=== PATIENT | male | born 1950 | race Caucasian/White ===

== ENCOUNTER 2019-01-20 15:44 | Observation (INO) ==
[2019-01-20] MEDS ORDERED: *HR* FentaNYL (PF) 100 MCG/2 ML VIAL IVP ONE (16:07)
--- NOTE | 2019-01-20 16:35 | Emergency Department Note ---
Disposition Clinical Impression: Syncope Qualifiers: Syncope type: unspecified Qualified Code(s): R55 - Syncope and collapse Wrist pain Qualifiers: Laterality: left Qualified Code(s): M25.532 - Pain in left wrist Disposition: Admitted As Inpatient Condition: Good Forms: ED Satisfaction Letter Time of Disposition: 18:22 General Adult HPI - General Chief complaint: ED Altered Mental Status Stated complaint: AMS Swollen Deformed Painful L Wrist Time Seen by Provider: 01/20/19 16:02 Source: patient Mode of arrival: ambulatory Limitations: no limitations Nursing Notes Reviewed: Yes Vital Signs Reviewed: Yes - History of Present Illness HPI Narrative: 68-year-old male with significant past medical history of hypertension, hyperlipidemia and coronary artery disease currently on aspirin and Plavix presenting to the emergency department chief complaint of altered mental status and left wrist deformity. According to family member at bedside patient was at his camper this week. She went to pick him up from the cancer and he was not acting like his normal self. He does not remember being there. He had a left wrist deformity and did not remember how he got it. Family member was concerned that the patient could have hit his head. Patient also complaining of some nausea and belching. Family member at bedside states his previous MIs have presented in similar fashion. Patient denies any chest pain or shortness of breath. Does state a little bit ahead pain but denies dizziness. Pain Scale: 8 - Related Data Allergies Allergy/AdvReac Type Severity Reaction Status Date / Time Iodinated Contrast Media Allergy Difficulty Verified 01/20/19 18:02 Breathing All systems ED: reviewed and negative except as stated. Constitutional: Denies: fever Eyes: Reports: as per HPI ENT ED: Reports: as per HPI Cardiovascular: Denies: chest pain Respiratory: Denies: dyspnea Gastrointestinal: Reports: nausea Genitourinary: Reports: as per HPI Musculoskeletal: Reports: joint swelling, arthralgia Integumentary: Reports: as per HPI Neurological: Reports: headache Psychiatric: Reports: as per HPI Endocrine: Reports: as per HPI Hematological/Lymphatic: Reports: as per HPI Allergic/Immunologic: Reports: as per HPI Past Medical History - Past Medical History Attestation: Yes The following information was validated with the patient. Medical history: Reports: coronary artery disease, hyperlipidemia, hypertension Psychiatric history: Reports: no psych history - Social History Smoking Status: Current every day smoker Smokeless Tobacco Status: No Alcohol use: Reports: none, rarely Drug use: Reports: none Physical Exam - General Limitations: no limitations General appearance: alert, in no apparent distress - Head Head exam: atraumatic, normocephalic, normal inspection - Eye Eye exam: Present: PERRL, EOMI. Absent: scleral icterus - ENT ENT exam: mucous membranes moist - Neck Neck exam: Present: full ROM. Absent: tenderness - Chest Chest inspection: Present: symmetric chest wall rise - Respiratory Respiratory exam: Present: normal lung sounds bilaterally. Absent: respiratory distress, wheezes - Cardiovascular Cardiovascular exam: Present: normal rhythm, tachycardia - Abdominal Exam Abdominal exam: Present: soft, tenderness. Absent: distention, guarding, rebound Abdominal tenderness: Present: epigastrium, mild - Extremities Exam Extremities exam: Present: other (All 4 extremities neurovascularly intact. Left wrist with significant tenderness to palpation and some mild swelling. Patient able to wiggle fingers without difficulty.) - Neurological Exam Neurological exam: Present: alert - Psychiatric Psychiatric exam: Present: normal affect, normal mood - Skin Skin exam: Present: warm Course Course Narrative: 68-year-old male presenting for left wrist deformity and altered mental status. In the room patient is alert and oriented. Mildly tachycardic in the low 100s but otherwise hemodynamically stable. Family member at bedside states he does not remember being at the camper. Patient does state he is having some left wrist pain with some tenderness and mild deformity noted. Concern for intracra nial etiology versus cardiac etiology at this time. We will obtain a CT of the head and cervical spine, wrist and chest x-ray along with basic labs, EKG and troponin. Disposition pending. Patient and family member at bedside agree with this plan. - Reevaluation(s) Reevaluation #1: Patient's laboratory analysis shows mild hypercalcemia but otherwise is benign. Wrist x-ray and chest x-ray shows no acute abnormality. CT head and cervical spine within normal limits. Due to patient's unexplained syncopal episode we will plan to admit the patient for further analysis. Patient remains alert and oriented 3 and hemodynamically stable. Patient agrees with this plan. Patient does have snuffbox tenderness therefore thumb spica splint will be placed. I spoke with the hospitalist non destructive testing technician Dr. Wellington who agrees to accept the patient at this time. He is recommending a CK level. This will be added. Vital Signs Temperature 98 F 01/20/19 15:55 Pulse Rate 107 01/20/19 15:55 Respiratory Rate 18 01/20/19 15:55 Blood Pressure 156/85 01/20/19 15:55 O2 Sat by Pulse Oximetry 95 01/20/19 15:55 Temperature 98 F 01/20/19 16:11 Pulse Rate 106 01/20/19 18:09 Respiratory Rate 16 01/20/19 18:09 Blood Pressure 148/87 01/20/19 18:09 O2 Sat by Pulse Oximetry 98 01/20/19 18:09 Oxygen Delivery Oxygen Delivery Room Air Medical Decision Making - Lab Data Result diagrams: 01/20/19 16:22 01/20/19 16:22 Lab Results 01/20/19 01/20/19 Range/Units 16:22 16:22 WBC 14.0 H (4.3-11.1) K/mcL RBC 5.12 (4.19-5.50) M/mcL Hgb 16.0 (12.9-16.9) g/dL Hct 47.2 (37.5-50.1) % MCV 92.2 (83.0-100.0) fL MCH 31.3 (28.0-33.3) pg MCHC 33.9 (31.6-35.5) g/dL RDW 13.2 (11.5-14.5) % Plt Count 306 (140-400) K/mcL MPV 9.0 L (9.4-12.4) fL Immature Gran % 0.4 (0-4) % Seg Neutrophils % 85.0 % Lymphocytes % 8.2 % Monocytes % 5.8 % Eosinophils % 0.3 % Basophils % 0.3 % Neutrophils # 11.9 H (1.6-8.9) K/mcL Lymphocytes # 1.2 (0.6-4.6) K/mcL Monocytes # 0.8 (0.0-1.3) K/mcL Eosinophils # 0.0 (0.0-0.6) K/mcL Basophils # 0.0 (0.0-0.2) K/mcL Sodium 137 (136-145) mEq/L Potassium 4.1 (3.5-5.1) mEq/L Chloride 101 (98-107) mEq/L Carbon Dioxide 29 (23-29) mEq/L BUN 11 (8-23) mg/dL Creatinine 1.00 (0.70-1.30) mg/dL Est GFR ( Amer) > 60 (> 60) Est GFR (Non-Af Amer) > 60 (> 60) BUN/Creatinine Ratio 11 (6-26) Glucose 130 H (70-105) mg/dL Calculated Osmolality 285 (280-300) Calcium 10.8 H (8.6-10.3) mg/dL Total Bilirubin 0.7 (0.3-1.0) mg/dL Direct Bilirubin 0.2 (0.0-0.2) mg/dL Indirect Bilirubin 0.5 (0.0-1.2) mg/dL AST 22 (13-39) Units/L ALT 32 (7-52) Units/L Alkaline Phosphatase 81 (34-104) Units/L Troponin I < 0.03 (< 0.04) ng/mL Serum Total Protein 7.6 (6.4-8.9) g/dL Albumin 4.3 (3.5-5.7) g/dL Globulin 3.3 (2.4-3.5) g/dL Albumin/Globulin Ratio 1.3 (1.1-2.2) - EKG Data EKG #1 EKG attestation: Yes I reviewed and interpreted this EKG. EKG results narrative: Sinus tachycardia. 106 bpm. Right bundle branch block. TN interval 164, QRS 144, QTC 488. No sign of acute ST segment elevation or ischemia. Compared to previous EKG completed on 07/15/2013 no significant changes noted
[2019-01-20 16:47] LABS: Basophils % 0.3 %; Eosinophils % 0.3 %; Hematocrit 47.2 % (37.5-50.1); Immature Granulocytes % 0.4 % (0-4); Lymphocytes # 1.2 K/mcL (0.6-4.6); Lymphocytes % 8.2 %; Mean Corpuscular HGB Conc 33.9 g/dL (31.6-35.5); Mean Corpuscular Hemoglobin 31.3 pg (28.0-33.3); Mean Corpuscular Volume 92.2 fL (83.0-100.0); Monocytes # 0.8 K/mcL (0.0-1.3); Monocytes % 5.8 %; Neutrophils # 11.9 K/mcL (1.6-8.9); Platelet Count 306 K/mcL (140-400); Red Blood Count 5.12 M/mcL (4.19-5.50); Red Cell Distribution Width 13.2 % (11.5-14.5)
[2019-01-20 17:07] LABS: Alanine Aminotransferase 32 Units/L (7-52); Albumin 4.3 g/dL (3.5-5.7); Albumin/Globulin Ratio 1.3 (1.1-2.2); Alkaline Phosphatase 81 Units/L (34-104); Aspartate Amino Transferase 22 Units/L (13-39); BUN/Creatinine Ratio 11 (6-26); Bilirubin,Direct 0.2 mg/dL (0.0-0.2); Bilirubin,Indirect 0.5 mg/dL (0.0-1.2); Bilirubin,Total 0.7 mg/dL (0.3-1.0); Blood Urea Nitrogen 11 mg/dL (8-23); Calcium 10.8 mg/dL (8.6-10.3); Carbon Dioxide 29 mEq/L (23-29); Chloride 101 mEq/L (98-107); Globulin 3.3 g/dL (2.4-3.5); Glucose 130 mg/dL (70-105); Osmolality,Calculated 285 (280-300); Potassium 4.1 mEq/L (3.5-5.1); Sodium 137 mEq/L (136-145); Total Protein 7.6 g/dL (6.4-8.9); Troponin I < 0.03 ng/mL (< 0.04); eGFR For African Americans > 60 (> 60); eGFR For Non-African Americans > 60 (> 60)
[2019-01-20 18:34] LABS: Creatine Kinase 94 Units/L (30-223)
[2019-01-20 18:57] LABS: Bilirubin,Urine Negative (Negative); Blood,Urine Trace (Negative); Clarity,Urine Cloudy (Clear); Color,Urine Yellow (Yellow); Glucose,Urine (UA) Normal (Normal); Ketones,Urine Negative (Negative); Leukocyte Esterase,Urine Small (Negative); Nitrite,Urine Negative (Negative); Protein,Urine Trace mg/dL (Neg-Trace); Urobilinogen,Urine Normal (Normal)
[2019-01-20 18:59] LABS: Bacteria,Urine Moderate per hpf (None-Few); Hyaline Casts,Urine None Seen per lpf (None-Few); Squamous Epithelial Cell,Urine None Seen per lpf (None-Few); WBC,Urine 15-30 per hpf (0-3)
[2019-01-20] MEDS ORDERED: Naloxone 0.4 MG/ML INJ IVP PRN (20:30)
[2019-01-20] MEDS ORDERED: Ondansetron ODT 4 MG TAB.RAPDIS SL PRN (20:30)
[2019-01-20] MEDS ORDERED: Ringers Solution, Lactated 1,000 ML IVC ONE (22:44)
[2019-01-20] MEDS ORDERED: Ringers Solution, Lactated 1,000 ML IVC SCH (22:45)
--- NOTE | 2019-01-20 23:04 | Internal Med History&Physical ---
Date of Encounter: 01/21/19 Time of Encounter: 23:02 Internal Medicine - H&P: HPI Chief complaint: confusion Admitted From: Home Plans for Post Hospital Care: Home History of present illness: Mr. 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 Patient usually during the summer lives in a camper and reported went to bed yesterday on 9 PM woke up this morning feeling severe left wrist pain. Patient subsequently drove to his daughter's house and was noted by his daughter to be slurring with his speech, and confused that lasted total 8-10 hours there was no alleviating or exacerbating factor no association of nausea, diaphoresis, vomiting, chest pain, shortness of breath, palpitations, diarrhea or abdominal pain. The patient's daughter who is an RN did a stroke assessment and saw there iwas no focal deficit, but slurring of speech. Patient does not remember what occurred during those episodes no recollection. Patient also complained of left wrist pain that was found incidentally sudden constant 10/10 exacerbated with movement and palpation, alleviated with elevation and rest accompanied with swelling and redness. Patient denied and doesnt re-call insect bites, trauma, or any event during this time. Personally reviewed patient's past medical, surgical, social and family history. Denies drinking, smoking or drugs besides summer lives at home as independent. Family history significant for cardiac disease, no recent surgeries. Patient had no medication changes and continues to be in aspirin and Plavix per cardiology recommendations outpatient. Allergies to IV dye that would cause CODE BLUE. CODE BLUE was discussed and patient is a full code. Past Med Surg Social Fam HX - Past Medical History Medical history: coronary artery disease, hyperlipidemia, hypertension, myocardial infarction Additional medical history: BPH, Kidney stones Psychiatric history: no psych history - Social History Smoking Status: Current every day smoker Smokeless Tobacco Status: No Alcohol use: none, rarely Drug use: none - Family History Father Living Status: Hx Family Neurologic Disorders: Yes Mother Living Status: Hx Family Neurologic Disorders: Yes Internal Medicine - H&P: Meds Aspirin [Lo-Dose Aspirin EC] 81 mg PO DAILY 01/20/19 [History] Atorvastatin Calcium [Lipitor] 80 mg PO HS 01/20/19 [History] Clopidogrel [Plavix] 75 mg PO DAILY 01/20/19 [History] Cranberry Fruit Extract [Cranberry] 500 mg PO DAILY 01/20/19 [History] Cyanocobalamin (Vitamin B-12) [B-12] 2,500 mcg SL DAILY 01/20/19 [History] Ezetimibe [Zetia] 10 mg PO HS 01/20/19 [History] Finasteride [Proscar] 5 mg PO DAILY 01/20/19 [History] Multivitamin [One Daily Essential] 1 each PO DAILY 01/20/19 [History] Pantoprazole Sodium [Protonix] 10 mg PO DAILY 01/20/19 [History] Ramipril [Altace] 10 mg PO BID 01/20/19 [History] Tamsulosin HCl [Flomax] 0.4 mg PO BID 01/20/19 [History] amLODIPine [Norvasc] 10 mg PO DAILY 01/20/19 [History] Allergy/AdvReac Type Severity Reaction Status Date / Time Iodinated Contrast Media Allergy Difficulty Verified 01/20/19 18:02 Breathing All Systems PM: A 10-system review of systems was performed and is negative for pertinent findings except as documented above in the HPI. Review of systems: General: No unintentional weightloss, No fever, No night sweats. Head: No headahce, No injury. Ears: No discharge, No earache Eyes: No drainage, No eye pain Mouth and Throat: No new ulcers, No pain Nose and Sinus: No new congestion, No pain, Respiratory: No cough, No sputum production, No dyspnea Cardiovascular: No chest pain, No palpitations. Gastrointestinal: No nausea, No vomiting. No abdominal pain Genital Tract: No discharge, No pain Urinary Tract: No dysuria, No discharge. MSK: + new/worsening joint pain or + new/worsening muscle ache. Endocrine: No cold intolerance, No polyuria Psychological: No suicidal, No homocidal ideation. - Constitutional Vitals: Temp Pulse Resp BP Pulse Ox 98.6 F 105 14 148/77 94 01/20/19 19:11 01/20/19 19:11 01/20/19 19:11 01/20/19 19:11 01/20/19 19:11 Exam: General Appearance: Appearing as age, well-nourished in mild acute distress. Head: Atraumatic normocephalic Skin: Normal texture, normal turgor, warm, dry. Eyes: Conjunctivae not pale with no erythema, drainage, or ulcers. Anicteric. Neck: No Lymphadenopathy in the anterior/posterior cervical chain. No thyromegaly, masses or ulcers. Trachea midline. Heart: RRR, no murmurs. Capillary refill 3 seconds Lungs: No accessory muscle usage, lungs clear to auscultation bilaterally, no wheezes or crackles. Extremities: No pitting edema, clubbing, cyanosis, or ulcers. Abdomen: Non-distended, normoactive bowel sounds. non-tender to palpation, no hepatomegally. No guarding. Neuro: AOx3 with no new sensory loss or focal deficits. MSK: Strength 5/5 right Upper extremity equal bilaterally. Strength 5/5 Lower extremity equal bilaterally. Left upper wrist tender, edematous nonerythematous with significant pain on passive and active range of motion localized general ized joint line. Pulses intact, sensation and muscle strength is also intact limited to pain 4/5. Internal Med - H&P Results - Labs CBC & Chem 7: 01/21/19 02:26 01/21/19 02:26 Labs: Short CBC 01/20/19 Range/Units 16:22 WBC 14.0 H (4.3-11.1) K/mcL Hgb 16.0 (12.9-16.9) g/dL Hct 47.2 (37.5-50.1) % Plt Count 306 (140-400) K/mcL Neutrophils # 11.9 H (1.6-8.9) K/mcL BMP 01/20/19 16:22 Sodium 137 Potassium 4.1 Chloride 101 Carbon Dioxide 29 BUN 11 Creatinine 1.00 Glucose 130 H Calcium 10.8 H Cardiac Enzymes 01/20/19 01/20/19 Range/Units 16:22 20:49 Troponin I < 0.03 < 0.03 (< 0.04) ng/mL Liver Function 01/20/19 Range/Units 16:22 Total Bilirubin 0.7 (0.3-1.0) mg/dL Direct Bilirubin 0.2 (0.0-0.2) mg/dL AST 22 (13-39) Units/L ALT 32 (7-52) Units/L Alkaline Phosphatase 81 (34-104) Units/L Albumin 4.3 (3.5-5.7) g/dL Urine 01/20/19 Range/Units 17:43 Urine Color Yellow (Yellow) Urine Clarity Cloudy A (Clear) Urine pH 7.0 (5.0-8.0) pH Units Ur Specific Leopold 1.020 (1.010-1.025) Urine Protein Trace (Neg-Trace) mg/dL Urine Glucose (UA) Normal (Normal) mg/dL - Impressions ITS Impressions Chest X-Ray 01/20/19 16:06 IMPRESSION: 1. Reticular opacities in the mid to lower lung zones. No prior studies available for comparison. Differential considerations are broad and include edema, infection, or chronic lung changes. D/ / 01/20/2019 16:41:20 Arti Hidalgo MD / kellee Interpreting Provider: Arti Hidalgo MD Cervical Spine CT 01/20/19 16:07 IMPRESSION: No acute fracture. D/ / Mireya Thomas MD / Mireya Thomas MD Interpreting Provider: Mireya Thomas MD Head CT 01/20/19 16:07 IMPRESSION: No acute intracranial abnormality. D/ / Mireya Thomas MD / Mireya Thomas MD Interpreting Provider: Mireya Thomas MD Wrist X-Ray 01/20/19 16:07 IMPRESSION: 1. No acute osseous or soft tissue abnormality of the left wrist. 2. Ulnar negative variance. D/ / 01/20/2019 16:42:35 Arti Hidalgo MD / Breanna Sandoval Interpreting Provider: Arti Hidalgo MD - Summary of Assessment and Plan Summary of Assessment and Plan: 1.Transient Encephalopathy: Suspected Transient ischemic attack with suspicion of transient global amnesia: Lasted for 8-10 hours and currently resolved. CT head negative. ABCD score 5-Moderate risk Aspirin given. Plan: Cardiac monitoring, ultrasound carotids, echocardiogram, MRI brain. Neurology consultation. 2.Acute left wrist pain: Unclear Etiology due to #1 Wrist x-ray showing no acute fracture. MRI left wrist to check for acute fracture, or septic joint. No joint US capabilities at night. 3. Hyperglycemia: A1c pending. ISS 4.Hyposphatemia: Replace. CHronic medical condition: HTN: held medications. DVT prophylaxis: heparin Dispo: likely < 2 day stay. - Time Spent With Patient Total time spent is greater than 39 minutes 50% in coordination of care (as documented) at patient's floor/unit and/or counseling patient: Greater than 35 minutes
[2019-01-20] MEDS ORDERED: Morphine Sulfate 2 MG/ML SYRINGE IVP PRN (23:07)
[2019-01-20] MEDS: *HR* OxyCODONE Immed Rel 5 MG TABLET PO PRN (23:32)
[2019-01-21] MEDS: Ringers Solution, Lactated 1,000 ML IVC SCH ×2 (00:42→08:56)
[2019-01-21 02:45] LABS: Basophils % 0.2 %; Eosinophils % 0.2 %; Immature Granulocytes % 0.4 % (0-4); Lymphocytes # 1.2 K/mcL (0.6-4.6); Lymphocytes % 9.2 %; Mean Corpuscular HGB Conc 34.1 g/dL (31.6-35.5); Mean Corpuscular Hemoglobin 31.5 pg (28.0-33.3); Mean Corpuscular Volume 92.4 fL (83.0-100.0); Mean Platelet Volume 9.1 fL (9.4-12.4); Monocytes # 1.1 K/mcL (0.0-1.3); Monocytes % 8.9 %; Neutrophils # 10.3 K/mcL (1.6-8.9); Platelet Count 282 K/mcL (140-400); Red Blood Count 4.76 M/mcL (4.19-5.50); Red Cell Distribution Width 13.3 % (11.5-14.5); Segmented Neutrophils % 81.1 %; White Blood Count 12.7 K/mcL (4.3-11.1)
[2019-01-21 02:52] LABS: INR 1.1; Prothrombin Time 12.3 Seconds (9.4-12.1)
[2019-01-21 03:04] LABS: Alanine Aminotransferase 25 Units/L (7-52); Albumin 3.7 g/dL (3.5-5.7); Albumin/Globulin Ratio 1.3 (1.1-2.2); Alkaline Phosphatase 74 Units/L (34-104); Aspartate Amino Transferase 18 Units/L (13-39); BUN/Creatinine Ratio 11 (6-26); Bilirubin,Total 0.6 mg/dL (0.3-1.0); Blood Urea Nitrogen 11 mg/dL (8-23); Calcium 9.4 mg/dL (8.6-10.3); Carbon Dioxide 25 mEq/L (23-29); Chloride 103 mEq/L (98-107); Globulin 2.9 g/dL (2.4-3.5); Glucose 234 mg/dL (70-105); Magnesium 1.8 mg/dL (1.6-2.6); Osmolality,Calculated 291 (280-300); Potassium 3.7 mEq/L (3.5-5.1); Sodium 137 mEq/L (136-145); Total Protein 6.6 g/dL (6.4-8.9); eGFR For African Americans > 60 (> 60); eGFR For Non-African Americans > 60 (> 60)
[2019-01-21 03:11] LABS: Chol/HDL Ratio 2.6 (0-4.9); Troponin I 0.03 ng/mL (< 0.04)
[2019-01-21] MEDS ORDERED: Aspirin Enteric Coated 325 MG Tablet PO SCH (04:54)
[2019-01-21] MEDS ORDERED: D5% in Water 1,000 ML IVC PRN (05:03)
[2019-01-21] MEDS ORDERED: *HR* Dextrose 50 % in Water (Syg) 50 ML SYRINGE IVP PRN (05:03)
[2019-01-21] MEDS ORDERED: Dextrose Gel 15 GM/37.5 ML TUBE PO PRN ×2 (05:03)
[2019-01-21] MEDS: *HR* Heparin 5,000 UNIT/ML VIAL SQ SCH ×2 (05:42→16:26)
[2019-01-21 06:06] LABS: Bilirubin,Urine Negative (Negative); Blood,Urine Moderate (Negative); Clarity,Urine Clear (Clear); Color,Urine Yellow (Yellow); Glucose,Urine (UA) 100 mg/dL (Normal); Ketones,Urine Negative (Negative); Leukocyte Esterase,Urine Trace (Negative); Nitrite,Urine Negative (Negative); Protein,Urine Negative (Neg-Trace); Specific Gravity,Urine 1.014 (1.010-1.025); Urobilinogen,Urine Normal (Normal)
[2019-01-21 06:08] LABS: Bacteria,Urine None Seen per hpf (None-Few); Hyaline Casts,Urine None Seen per lpf (None-Few); RBC,Urine 15-30 per hpf (0-3); Squamous Epithelial Cell,Urine Moderate per lpf (None-Few)
[2019-01-21] MEDS: Insulin LISPRO 300 UNITS/3 ML VIAL SQ SCH ×2 (07:49→13:02)
[2019-01-21] MEDS ORDERED: Lisinopril 20 MG TABLET PO SCH (09:00)
[2019-01-21] MEDS ORDERED: Finasteride 5 MG TABLET PO SCH (09:00)
[2019-01-21] MEDS ORDERED: Aspirin Enteric Coated 81 MG Tablet PO SCH (09:00)
[2019-01-21] MEDS: *HR* OxyCODONE Immed Rel 5 MG TABLET PO PRN (09:18)
[2019-01-21 09:57] LABS: Amphetamine Screen,Urine Negative ng/mL (Cutoff=1000); Barbiturate Screen,Urine Negative ng/mL (Cutoff=200); Benzodiazepines Screen,Urine Negative ng/mL (Cutoff=200); Cannabinoid Screen,Urine Negative ng/mL (Cutoff = 50); Cocaine Screen,Urine Negative ng/mL (Cutoff= 300); Opiate Screen,Urine Negative ng/mL (Cutoff=300); Phencyclidine Screen,Urine Negative ng/mL (Cutoff=25)
[2019-01-21 10:56] LABS: Estimated Average Glucose 151 mg/dl
[2019-01-21 11:27] VITALS: BP 150/84
--- NOTE | 2019-01-21 15:11 | Discharge Summary ---
- NOTES TO OUTPATIENT PROVIDER Notes to Outpatient Provider: Patient with a history of BPH, coronary artery disease, CABG who was hospitalized here with concerns initially for slurred speech and confusion and possible TIA. TIA workup was negative. Patient had an MRI of the brain which was negative for acute stroke. He had also been complaining of pain and swelling in his left wrist. MRI of the left wrist showed possible nondisplaced fracture of the hamate bone with surrounding edema. Patient has had a wrist brace placed and orthopedics follow-up will be arranged. Patient is stable to be discharged home at this time. He has no focal deficits. . Patient does appear to have microscopic hematuria which will need to be followed as outpatient. Orders not resulted at time of discharge: Pending orders 01/20/19 17:43 Culture,Urine [RM] Stat Date of Encounter: 01/21/19 Time of Encounter: 15:09 - Discharge Diagnosis (1) TIA (transient ischemic attack) Priority: Primary Status: Acute (2) Fracture of hamate bone of left wrist Priority: Secondary Status: Acute Qualifiers: Encounter type: initial encounter Hamate bone location: unspecified portion of hamate Fracture type: closed Fracture alignment: nondisplaced Qualified Code(s): S62.145A - Nondisplaced fracture of body of hamate [unciform] bone, left wrist, initial encounter for closed fracture (3) Diabetes mellitus, type 2 Priority: Secondary Status: Acute Qualifiers: 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 Cruz is a 68 year old male Patient with a history of BPH, coronary artery disease, CABG who was hospitalized here with concerns initially for slurred speech and confusion and possible TIA. TIA workup was negative. Patient had an MRI of the brain which was negative for acute stroke. He had also been complaining of pain and swelling in his left wrist. MRI of the left wrist showed possible nondisplaced fracture of the hamate bone with surrounding edema. Patient has had a wrist brace placed and orthopedics follow-up will be arranged. Patient is stable to be discharged home at this time. He has no focal deficits. Patient had a normal ejection fraction on echocardiogram wi thout any PFO. Bilateral carotid duplex was also within normal limits. . Patient does appear to have microscopic hematuria which will need to be followed as outpatient. Discharge discussed with: patient, family - Time Spent with Patient Total time spent providing and/or coordinating discharge services: Time spent: Less than 30 minutes (20min) - Discharge Medications Prescriptions: New metFORMIN [Glucophage] 500 mg PO BIDWM #60 tablet Continued Tamsulosin HCl [Flomax] 0.4 mg PO BID Ramipril [Altace] 10 mg PO BID Pantoprazole Sodium [Protonix] 10 mg PO DAILY Multivitamin [One Daily Essential] 1 each PO DAILY Finasteride [Proscar] 5 mg PO DAILY Ezetimibe [Zetia] 10 mg PO HS Cyanocobalamin (Vitamin B-12) [B-12] 2,500 mcg SL DAILY Cranberry Fruit Extract [Cranberry] 500 mg PO DAILY Clopidogrel [Plavix] 75 mg PO DAILY Atorvastatin Calcium [Lipitor] 80 mg PO HS Aspirin [Lo-Dose Aspirin EC] 81 mg PO DAILY amLODIPine [Norvasc] 10 mg PO DAILY Home Medications: Aspirin [Lo-Dose Aspirin EC] 81 mg PO DAILY 01/20/19 [History] Atorvastatin Calcium [Lipitor] 80 mg PO HS 01/20/19 [History] Clopidogrel [Plavix] 75 mg PO DAILY 01/20/19 [History] Cranberry Fruit Extract [Cranberry] 500 mg PO DAILY 01/20/19 [History] Cyanocobalamin (Vitamin B-12) [B-12] 2,500 mcg SL DAILY 01/20/19 [History] Ezetimibe [Zetia] 10 mg PO HS 01/20/19 [History] Finasteride [Proscar] 5 mg PO DAILY 01/20/19 [History] Multivitamin [One Daily Essential] 1 each PO DAILY 01/20/19 [History] Pantoprazole Sodium [Protonix] 10 mg PO DAILY 01/20/19 [History] Ramipril [Altace] 10 mg PO BID 01/20/19 [History] Tamsulosin HCl [Flomax] 0.4 mg PO BID 01/20/19 [History] amLODIPine [Norvasc] 10 mg PO DAILY 01/20/19 [History] metFORMIN [Glucophage] 500 mg PO BIDWM #60 tablet 01/21/19 [Rx] Allergies/Adverse Reactions: Allergy/AdvReac Type Severity Reaction Status Date / Time Iodinated Contrast Media Allergy Difficulty Verified 01/20/19 18:02 Breathing Date of admission: 01/20/19 18:27 Primary care physician: Les Swan DO Consults: 01/20/19 23:14 Consult to Occupational Therapy [CONS] Routine Comment: Evaluate, develop and implement POC Reason for Consult: wrist pain Does patient have active BEDREST order?: No Is patient medically & hemodynamically stable?: Yes Patient assessed for mobility or mobilized this visit?: No 01/21/19 06:00 Consult to Neurology [CONS] Routine Consulting Provider: Neurology [facility] Reason for Consult: intermittend confusion: unclear if TIA, or transient global amnesia? Call Completed: No Discharging clinician: Ana Oneil Anticipated date of discharge: 01/21/19 - Constitutional Vitals: Temp Pulse Resp BP Pulse Ox 98.5 F 101 19 150/84 95 01/21/19 11:25 01/21/19 11:25 01/21/19 11:25 01/21/19 11:25 01/21/19 11:25 Exam: General: Patient is alert, no acute distress, oriented x 3 Respiratory: Good respiratory effort. Normal breath sounds. No wheezing or crackles. Cardiovascular: Regular rate and rhythm. s1 and s2 normal No clicks, rubs, gallops, or murmurs. No pedal edema Abdomen: Abdomen is soft, nontender. Bowel sounds are present Musculoskeletal: Tenderness and swelling over the left wrist joint Skin: warm, dry, intact. Neuro: Alert oriented x 3 normal cranial nerves, no focal deficits - Patient Status Disposition: Home, Self-Care Condition: Good Functional capacity at discharge: independent ambulation Overall status at discharge: patient is progressing back to baseline - Discharge Instructions Instructions: Diabetes Mellitus Type 2 in Adults (DC) Follow Up With: Jacky Swan DO [Primary Care Provider] - (Appointment has been requested. ) Abraham Kincaid MD [Partnered Physician] - (in 1 week) - Diet and Activity Activity: increase activity as tolerated Diet: diabetic diet, low fat, low cholesterol, low salt diet
[2019-01-21] MEDS ORDERED: NON-FORMULARY MEDICATION 1 EACH EACH (Ezetimibe [Zetia] 10 MG) PO SCH (21:00)
--- NOTE | 2019-01-23 09:01 | Electrocardiograph Report ---
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
--- NOTE | 2019-02-02 08:08 | Emergency Department Note ---
Disposition Clinical Impression: Syncope Qualifiers: Syncope type: unspecified Qualified Code(s): R55 - Syncope and collapse Wrist pain Qualifiers: Laterality: left Qualified Code(s): M25.532 - Pain in left wrist Disposition: Admitted As Inpatient Condition: Good Time of Disposition: 18:22 General Adult HPI - General Chief complaint: ED Altered Mental Status Stated complaint: AMS Swollen Deformed Painful L Wrist Time Seen by Provider: 01/20/19 16:02 Source: patient Mode of arrival: ambulatory Limitations: no limitations - History of Present Illness Pain Scale: 6 - Related Data Home Medications Medication Instructions Recorded Confirmed Aspirin [Lo-Dose Aspirin EC] 81 mg PO DAILY 01/20/19 01/21/19 Atorvastatin Calcium [Lipitor] 80 mg PO HS 01/20/19 01/21/19 Clopidogrel [Plavix] 75 mg PO DAILY 01/20/19 01/21/19 Cranberry Fruit Extract [Cranberry] 500 mg PO DAILY 01/20/19 01/21/19 Cyanocobalamin (Vitamin B-12) 2,500 mcg SL DAILY 01/20/19 01/21/19 [B-12] Ezetimibe [Zetia] 10 mg PO HS 01/20/19 01/21/19 Finasteride [Proscar] 5 mg PO DAILY 01/20/19 01/21/19 Multivitamin [One Daily Essential] 1 each PO DAILY 01/20/19 01/21/19 Pantoprazole Sodium [Protonix] 10 mg PO DAILY 01/20/19 01/21/19 Ramipril [Altace] 10 mg PO BID 01/20/19 01/21/19 Tamsulosin HCl [Flomax] 0.4 mg PO BID 01/20/19 01/21/19 amLODIPine [Norvasc] 10 mg PO DAILY 01/20/19 01/21/19 Previous Rx's Medication Instructions Recorded Ibuprofen [Motrin] 600 mg PO Q8HR #20 tab 01/21/19 Tramadol HCl [Ultram] 50 mg PO TID PRN 5 Days #20 tab 01/21/19 metFORMIN [Glucophage] 500 mg PO BIDWM #60 tablet 01/21/19 Allergies Allergy/AdvReac Type Severity Reaction Status Date / Time Iodinated Contrast Media Allergy Difficulty Verified 01/20/19 18:02 Breathing Constitutional: Denies: fever Eyes: Reports: as per HPI ENT ED: Reports: as per HPI Cardiovascular: Denies: chest pain Respiratory: Denies: dyspnea Gastrointestinal: Reports: nausea Genitourinary: Reports: as per HPI Musculoskeletal: Reports: joint swelling, arthralgia Integumentary: Reports: as per HPI Neurological: Reports: headache Psychiatric: Reports: as per HPI Endocrine: Reports: as per HPI Hematological/Lymphatic: Reports: as per HPI Allergic/Immunologic: Reports: as per HPI Past Medical History - Past Medical History Medical history: Reports: coronary artery disease, hyperlipidemia, hypertension, myocardial infarction Psychiatric history: Reports: no psych history - Social History Smoking Status: Current every day smoker Smokeless Tobacco Status: No Alcohol use: Reports: none, rarely Drug use: Reports: none Physical Exam - General Limitations: no limitations General appearance: alert, in no apparent distress Course Vital Signs Temperature 98 F 01/20/19 15:55 Pulse Rate 107 01/20/19 15:55 Respiratory Rate 18 01/20/19 15:55 Blood Pressure 156/85 01/20/19 15:55 O2 Sat by Pulse Oximetry 95 01/20/19 15:55 Temperature 98.5 F 01/21/19 11:25 Pulse Rate 101 01/21/19 11:25 Respiratory Rate 19 01/21/19 11:25 Blood Pressure 150/84 01/21/19 11:25 O2 Sat by Pulse Oximetry 95 01/21/19 11:25 Oxygen Delivery Oxygen Delivery Room Air Medical Decision Making - Lab Data Result diagrams: 01/21/19 02:26 01/21/19 02:26 Lab Results 01/20/19 01/20/19 01/20/19 Range/Units 16:22 16:22 17:43 WBC 14.0 H (4.3-11.1) K/mcL RBC 5.12 (4.19-5.50) M/mcL Hgb 16.0 (12.9-16.9) g/dL Hct 47.2 (37.5-50.1) % MCV 92.2 (83.0-100.0) fL MCH 31.3 (28.0-33.3) pg MCHC 33.9 (31.6-35.5) g/dL RDW 13.2 (11.5-14.5) % Plt Count 306 (140-400) K/mcL MPV 9.0 L (9.4-12.4) fL Immature Gran % 0.4 (0-4) % Seg Neutrophils % 85.0 % Lymphocytes % 8.2 % Monocytes % 5.8 % Eosinophils % 0.3 % Basophils % 0.3 % Neutrophils # 11.9 H (1.6-8.9) K/mcL Lymphocytes # 1.2 (0.6-4.6) K/mcL Monocytes # 0.8 (0.0-1.3) K/mcL Eosinophils # 0.0 (0.0-0.6) K/mcL Basophils # 0.0 (0.0-0.2) K/mcL Sodium 137 (136-145) mEq/L Potassium 4.1 (3.5-5.1) mEq/L Chloride 101 (98-107) mEq/L Carbon Dioxide 29 (23-29) mEq/L BUN 11 (8-23) mg/dL Creatinine 1.00 (0.70-1.30) mg/dL Est GFR ( Amer) > 60 (> 60) Est GFR (Non-Af Amer) > 60 (> 60) BUN/Creatinine Ratio 11 (6-26) Glucose 130 H (70-105) mg/dL POC Glucose (70-99) mg/dL Calculated Osmolality 285 (280-300) Calcium 10.8 H (8.6-10.3) mg/dL Total Bilirubin 0.7 (0.3-1.0) mg/dL Direct Bilirubin 0.2 (0.0-0.2) mg/dL Indirect Bilirubin 0.5 (0.0-1.2) mg/dL AST 22 (13-39) Units/L ALT 32 (7-52) Units/L Alkaline Phosphatase 81 (34-104) Units/L Creatine Kinase 94 (30-223) Units/L Troponin I < 0.03 (< 0.04) ng/mL Serum Total Protein 7.6 (6.4-8.9) g/dL Albumin 4.3 (3.5-5.7) g/dL Globulin 3.3 (2.4-3.5) g/dL Albumin/Globulin Ratio 1.3 (1.1-2.2) Urine Color Yellow (Yellow) Urine Clarity Cloudy A (Clear) Urine pH 7.0 (5.0-8.0) pH Units Ur Specific [place] 1.020 (1.010-1.025) Urine Protein Trace (Neg-Trace) mg/dL Urine Glucose (UA) Normal (Normal) mg/dL Urine Ketones Negative (Negative) mg/dL Urine Blood Trace H (Negative) Urine Nitrite Negative (Negative) Urine Bilirubin Negative (Negative) Urine Urobilinogen Normal (Normal) mg/dL Ur Leukocyte Esterase Small H (Negative) Urine Microscopic RBC 5-15 H (0-3) per hpf Urine Microscopic WBC 15-30 H (0-3) per hpf Ur Squamous Epith Cells None Seen (None-Few) per lpf Urine Bacteria Moderate H (None-Few) per hpf Hyaline Casts None Seen (None-Few) per lpf Ur Culture Indicated? YES A (NO) 01/20/19 Range/Units 17:50 WBC (4.3-11.1) K/mcL RBC (4.19-5.50) M/mcL Hgb (12.9-16.9) g/dL Hct (37.5-50.1) % MCV (83.0-100.0) fL MCH (28.0-33.3) pg MCHC (31.6-35.5) g/dL RDW (11.5-14.5) % Plt Count (140-400) K/mcL MPV (9.4-12.4) fL Immature Gran % (0-4) % Seg Neutrophils % % Lymphocytes % % Monocytes % % Eosinophils % % Basophils % % Neutrophils # (1.6-8.9) K/mcL Lymphocytes # (0.6-4.6) K/mcL Monocytes # (0.0-1.3) K/mcL Eosinophils # (0.0-0.6) K/mcL Basophils # (0.0-0.2) K/mcL Sodium (136-145) mEq/L Potassium (3.5-5.1) mEq/L Chloride (98-107) mEq/L Carbon Dioxide (23-29) mEq/L BUN (8-23) mg/dL Creatinine (0.70-1.30) mg/dL Est GFR ( Amer) (> 60) Est GFR (Non-Af Amer) (> 60) BUN/Creatinine Ratio (6-26) Glucose (70-105) mg/dL POC Glucose 122 H (70-99) mg/dL Calculated Osmolality (280-300) Calcium (8.6-10.3) mg/dL Total Bilirubin (0.3-1.0) mg/dL Direct Bilirubin (0.0-0.2) mg/dL Indirect Bilirubin (0.0-1.2) mg/dL AST (13-39) Units/L ALT (7-52) Units/L Alkaline Phosphatase (34-104) Units/L Creatine Kinase (30-223) Units/L Troponin I (< 0.04) ng/mL Serum Total Protein (6.4-8.9) g/dL Albumin (3.5-5.7) g/dL Globulin (2.4-3.5) g/dL Albumin/Globulin Ratio (1.1-2.2) Urine Color (Yellow) Urine Clarity (Clear) Urine pH (5.0-8.0) pH Units Ur Specific [place] (1.010-1.025) Urine Protein (Neg-Trace) mg/dL Urine Glucose (UA) (Normal) mg/dL Urine Ketones (Negative) mg/dL Urine Blood (Negative) Urine Nitrite (Negative) Urine Bilirubin (Negative) Urine Urobilinogen (Normal) mg/dL Ur Leukocyte Esterase (Negative) Urine Microscopic RBC (0-3) per hpf Urine Microscopic WBC (0-3) per hpf Ur Squamous Epith Cells (None-Few) per lpf Urine Bacteria (None-Few) per hpf Hyaline Casts (None-Few) per lpf Ur Culture Indicated? (NO) Attestation Statement - Attestation Attestation: I examined this patient and my medical decision-making was reviewed with the Resident Physician. I agree with the documented findings, disposition and treatment plan as described except to the extent set forth below. I was present for the resident's EKG interpretation. Thumb spica splint placed due to snuffbox tenderness after suspected fall on outstretched hand during syncopal episode. Hemodynamically stable in the emergency department. Accepted by hospitalist for admission.
== END 2019-01-21 16:40 | disposition home or self-care (01) ==
LOC: EMEROOARM 15:44 → 3BNU 15:44 → SUATTDRO 18:27 → 3BNU 19:01
PROVIDERS: ADMIT Internal Medicine; ATTEND Internal Medicine